=== PATIENT | male | born 1960 | race Caucasian/White ===

== ENCOUNTER 2021-05-21 18:55 | Emergency (ER) | payer SELFPAY | END 2021-05-21 19:30 | disposition left against medical advice (07) | LOC: DL.ED 18:55 | DX: Z53.21 Procedure and treatment not carried out due to patient leaving prior to being seen by health care provider (principal) ==

== ENCOUNTER 2024-08-11 16:23 | Emergency (ER) | payer BC, OTHER ==
[2024-08-11] MEDS: Acetaminophen/oxyCODONE 325-5 MG Tab PO ONE (17:22)
== END 2024-08-11 17:51 | disposition home or self-care (01) ==
LOC: DL.ED 16:23
DX: S83.92XA Sprain of unspecified site of left knee, initial encounter (principal); Z91.048 Other nonmedicinal substance allergy status; W00.0XXA Fall on same level due to ice and snow, initial encounter
CPT/HCPCS: 73562; 99283; A9270